=== PATIENT | female | born 1975 | race African-American/Black ===

== ENCOUNTER 2019-01-12 19:59 | Emergency (ER) | payer MEDICARE, MEDICAID ==
[2019-01-12] MEDS ORDERED: IBUPROFEN 800 MG TABLET PO ONE (23:17)
[2019-01-12] MEDS ORDERED: PREDNISONE 10 MG TABLET PO ONE (23:17)
[2019-01-12] MEDS ORDERED: DIPHENHYDRAMINE HCL 50 MG CAPSULE PO ONE (23:18)
--- NOTE | 2019-01-12 23:21 | ER Document Report ---
ED General - General Chief Complaint: Allergic Reaction Stated Complaint: POSSIBLE ALLERGIC REACTION Time Seen by Provider: 01/12/19 23:16 Primary Care Provider: MANNY WINN MD [Primary Care Provider] - Follow up as needed Mode of Arrival: Ambulatory Information source: Patient TRAVEL OUTSIDE OF THE [place] IN LAST 30 DAYS: No - HPI Patient complains to provider of: Left ring finger insect bite Onset: Just prior to arrival Onset/Duration: Sudden Quality of pain: Throbbing Severity: Severe Pain Level: 4 Associated symptoms: None Exacerbated by: Denies Relieved by: Denies Similar symptoms previously: No Recently seen / treated by doctor: No Notes: 43-year-old -[place] female coming in today with insect bite to left ring finger prior to arrival. Came in from working outside felt to staying in her left ring finger. Finger immediately swollen and started swelling down into the palm of her hand. It has since subsided. It has not gone any further than her hand. She did not have any generalized rash or itching. She did not have a ny oropharyngeal swelling or difficulty breathing. No history of anaphylaxis in the past. Has not used epinephrine in the past for an allergic reaction. - Related Data Allergies/Adverse Reactions: No Known Allergies Allergy (Unverified 09/15/11 18:33) Past Medical History - General Information source: Patient - Social History Smoking Status: Smoker,Current Status Unk Family History: Reviewed & Not Pertinent - Past Medical History Cardiac Medical History: Reports: Hx Hypertension Pulmonary Medical History: Reports: Hx Asthma Neurological Medical History: Reports: Hx Migraine Endocrine Medical History: Reports: Hx Diabetes Mellitus Type 2 Past Surgical History: Reports: Hx Section - 3 - Immunizations Immunizations up to date: Yes Hx Diphtheria, Pertussis, Tetanus Vaccination: Yes Review of Systems - Review of Systems Notes: Constitutional: No fevers. No chills. EENT: No eye redness. No eye pain. No ear pain. No sore throat. Negative for throat swelling Cardiovascular: No chest pain. No palpitations. Respiratory: No cough. No shortness of breath. No respiratory distress. Gastrointestinal: No abdominal pain. No nausea, vomiting, or diarrhea. Genitourinary: Atraumatic. No lesions. No pain. No discharge. Musculoskeletal: Atraumatic. No swelling. No deformities. Skin: No rash or lesions. Positive swelling left ring finger Lymphatic: No swollen lymph nodes. Neurologic: No headache. No syncope. Psychiatric: No suicidal or homicidal ideation. Physical Exam - Vital signs Vitals: Temp Pulse Resp BP Pulse Ox 98.8 F 86 15 165/95 H 97 01/12/19 20:25 01/12/19 20:25 01/12/19 20:25 01/12/19 20:25 01/12/19 20:25 - Notes Notes: General: Well-developed, well-nourished. In no acute distress. Non-toxic appearing. Cardiac: Well-perfused. Regular rate and rhythm. No murmurs, rubs, or gallops. Pulmonary: No respiratory distress. No cyanosis. Bilateral lung fiels are clear to auscultation. Abdominal: Non-distended. Non-rigid. Bowels sounds are present in all four quadrants. No guarding or rebound. HEENT: Head is atraumatic. Conjunctivae not reddened. No tearing. PERRL. EOMI. Orbits atraumatic. No periorbital swelling or erythema. Oropharynx is without erythema, swelling, or exudates. Neck: Supple. No adenopathy. No meningismus. Dermatologic: Warm with good turgor. No rash. Atraumatic. Chest: Atraumatic. No chest wall tenderness to palpation. Musculoskeletal: Left ring finger slightly swollen. No evidence of erythema or heat. Good range of motion. Genitourinary: Examination deferred Neurologic: No gross neurologic deficits. Psychiatric: Normal mood. Course - Vital Signs Vital signs: Temp Pulse Resp BP Pulse Ox 98.8 F 86 15 165/95 H 97 01/12/19 20:25 01/12/19 20:25 01/12/19 20:25 01/12/19 20:25 01/12/19 20:25 Discharge - Discharge Clinical Impression: Insect bite Qualifiers: Encounter type: initial encounter Site of insect bite: finger Finger: ring finger Laterality: left Qualified Code(s): S60.465A - Insect bite (nonvenomous) of left ring finger, initial encounter; W57.XXXA - Bitten or stung by nonvenomous insect and other nonvenomous arthropods, initial encounter Condition: Good Disposition: HOME, SELF-CARE Instructions: Acute Allergic Reaction ([facility]) Additional Instructions: If he continued to have any swelling or pain, you may take [id number] Benadryl for the swelling/itching and he may take ibuprofen for pain. Return to ER if rash gets worse Referrals: MANNY WINN MD [Primary Care Provider] - Follow up as needed
[2019-01-13 00:05] VITALS: BP 208/130
== END 2019-01-13 00:37 | disposition home or self-care (01) ==
LOC: ER 19:59
DX: S60.465A Insect bite (nonvenomous) of left ring finger, initial encounter (principal); W57.XXXA Bitten or stung by nonvenomous insect and other nonvenomous arthropods, initial encounter; I10 Essential (primary) hypertension; E11.9 Type 2 diabetes mellitus without complications
CPT/HCPCS: 99281; A9270 ×3; J7512